=== PATIENT | female | born 1955 | race Caucasian/White ===

== ENCOUNTER 2020-05-10 08:52 | Outpatient (RCR) | payer OTHER, SELFPAY | END 2020-05-10 23:59 | LOC: IMMUN 08:52 | PROVIDERS: PCP Family Medicine; Visit Provider Family Medicine | DX: Z23 Encounter for immunization (principal) | CPT/HCPCS: 0011A; 0012A ==

== ENCOUNTER 2024-02-23 21:10 | Emergency (ER) | payer MEDICARE, SELFPAY ==
[2024-02-23 21:10] VITALS: BP 126/55; PULSE 67; RESP 18; TEMP 36.4; O2SAT 99; BMI 16.8
--- NOTE | 2024-02-23 21:15 | ED.RN ---
pT STATED SHE DID NOT WANT TO WAIT IN ED WAITING ROOM AND WOULD GO SOMEWHERE ELSE FOR TREATMENT
== END 2024-02-23 21:14 | disposition left against medical advice (07) ==
LOC: ED 21:21
PROVIDERS: PCP Family Medicine
DX: Z53.21 Procedure and treatment not carried out due to patient leaving prior to being seen by health care provider (principal)